=== PATIENT | female | born 1990 | race Caucasian/White ===

== ENCOUNTER 2018-01-12 14:24 | Emergency (ER) | payer OTHER ==
[~2018-01-12] VITALS: Ht 152.4 cm; Wt 53.1 kg
[2018-01-12] MEDS ORDERED: Motrin,Rufen800 MG PO (16:05)
[2018-01-12] MEDS ORDERED: TYLENOL W/CODEI1 TA4 PO (16:08)
== END 2018-01-12 16:00 | disposition home or self-care (01) ==
LOC: ED 14:24
DX: S52.502A Unspecified fracture of the lower end of left radius, initial encounter for closed fracture (principal); S52.615A Nondisplaced fracture of left ulna styloid process, initial encounter for closed fracture; V89.0XXA Person injured in unspecified motor-vehicle accident, nontraffic, initial encounter; Y93.89 Activity, other specified; Y92.488 Other paved roadways as the place of occurrence of the external cause; Y99.8 Other external cause status

== ENCOUNTER → 2018-01-16 | Outpatient (CLI) | payer OTHER ==
[~2018-01-16] MED LIST: Motrin,Rufen800 MG PO; TYLENOL W/CODEI1 TA4 PO
== END | disposition home or self-care (01) ==
LOC: ORTHO 01:24 → LAB 01:24 → ORTHO 19:38
DX: S52.502D Unspecified fracture of the lower end of left radius, subsequent encounter for closed fracture with routine healing (principal); X58.XXXD Exposure to other specified factors, subsequent encounter